=== PATIENT | male | born 1970 | race Caucasian/White ===

== ENCOUNTER → 2020-01-05 | Day surgery (SDC) | payer OTHER ==
[~2020-01-05] MED LIST: FENTANYL CITRATE/PF 100MCG/2 ML INJ ONE; HUMIRA10 MG/0.2 INJ; MIDAZOLAM HCL 2 MG/2 ML VIAL ONE; OR PHACO EYE KIT ONE; PREOP PHACO EYE KIT ONE; PRILOSEC OTC20 MG PO
[2020-01-05 12:40] VITALS: BP 149/89
== END | disposition home or self-care (01) ==
LOC: OR 09:55
PROVIDERS: ATTEND Ophthalmology
DX: H25.11 Age-related nuclear cataract, right eye (principal); I10 Essential (primary) hypertension; E78.00 Pure hypercholesterolemia, unspecified; L40.50 Arthropathic psoriasis, unspecified; Z01.812 Encounter for preprocedural laboratory examination; Z11.59 Encounter for screening for other viral diseases
CPT/HCPCS: 66984; J2250; J3010; U0002; V2632